=== PATIENT | female | born 1980 | race Caucasian/White ===

== ENCOUNTER 2017-02-15 03:20 | Emergency (ER) | payer BC ==
[~2017-02-15] VITALS: Ht 162.6 cm; Wt 77.3 kg
[~2017-02-15 03:20] MED LIST: CEFTIN500 MG PO; CELEXA 20MG20 MG/TAB PO; NAPROSYN500 MG PO; NUVARING1 ICR VG; PERCOCET 325 MG1 TA2 PO; TOPAMAX 100MG100 M1 PO; ZANTAC 150MG T150 MG PO; ZOFRAN ODT4 MG PO
[2017-02-15 03:25] VITALS: TEMP 97.8
[2017-02-15] MEDS ORDERED: BRINTELLIX20 PO (03:29)
[2017-02-15 04:34] LABS: BASO % 0.4 % (0.0-2.0); EOS # 0.2 (0.0-0.7); EOS % 2.2 % (0-4.0); GRAN # 5.5 (1.4-6.5); GRAN % 57.5 % (42.2-75.2); LYMPH % 31.2 % (20.0-51.0); MEAN CELL VOLUME 89 fl (80.0-100.0); MEAN CORPUSCULAR HGB CONC 33 g/dl (33.0-37.0); MEAN PLATELET VOLUME 9.1 fl (7.4-10.4); MONO # 0.8 (0.1-0.6); MONO % 7.9 % (1.7-9.3); PLATELET COUNT 262 K/mm3 (130-400); RED BLOOD COUNT 3.77 M/mm3 (4.10-5.30); REDCELL DISTRIBUTION WIDTH-CV 12.3 % (11.5-14.5)
[2017-02-15 04:35] LABS: HEMATOCRIT 33.6 % (37.0-47.0); HEMOGLOBIN 11.1 g/dl (12.5-16.0); MEAN CORPUSCULAR HEMOGLOBIN 29 pg (27.0-31.0)
[2017-02-15 04:52] LABS: ERYTHROCYTE SEDIMENTATION RATE 16 mm/hr (0-20)
[2017-02-15] MEDS ORDERED: NEURONTIN100 MG/CAP PO (05:30)
[2017-02-15] MEDS ORDERED: PERCOCET 325 MG1 TA2 PO (05:30)
[2017-02-15 06:20] VITALS: BP 105/70; PULSE 65
== END 2017-02-15 05:42 | disposition home or self-care (01) ==
LOC: COL.ER 03:20
PROVIDERS: Emergency Medicine
DX: R68.84 Jaw pain (principal); G43.909 Migraine, unspecified, not intractable, without status migrainosus
CPT/HCPCS: J1885; J3010

== ENCOUNTER 2017-04-18 11:55 | Emergency (ER) | payer BC ==
[~2017-04-18] VITALS: Ht 162.6 cm; Wt 81.8 kg
[~2017-04-18 11:55] MED LIST changes: +BRINTELLIX20 PO; +NEURONTIN100 MG/CAP PO
[2017-04-18 11:56] VITALS: BP 146/89; PULSE 89; TEMP 98.5
[2017-04-18] MEDS ORDERED: TEGRETOL 2200 MG/TA1 PO (11:59)
[2017-04-18] MEDS ORDERED: DOXYCYCLINE 10100 MG PO (12:29)
== END 2017-04-18 12:39 | disposition home or self-care (01) ==
LOC: COL.ER 11:55
DX: L03.115 Cellulitis of right lower limb (principal); I10 Essential (primary) hypertension; F32.9 Major depressive disorder, single episode, unspecified; Z87.891 Personal history of nicotine dependence

== ENCOUNTER → 2017-09-24 | Outpatient (CLI) | payer BC ==
[~2017-09-24] MED LIST changes: +DOXYCYCLINE 10100 MG PO; +TEGRETOL 2200 MG/TA1 PO
== END ==
LOC: COL.RAD 09:45
DX: N92.1 Excessive and frequent menstruation with irregular cycle (principal)

== ENCOUNTER 2023-12-11 07:46 | Emergency (ER) | payer BC ==
[~2023-12-11] VITALS: Ht 162.6 cm; Wt 71.8 kg
[2023-12-11 07:48] VITALS: BP 110/72; PULSE 76; TEMP 97.8
[2023-12-11 08:22] LABS: COLLECTION METHOD CLEAN CATCH
[2023-12-11 08:31] LABS: PH 5.5 (5.0-8.5); URINE APPEARANCE TURBID (CLEAR/HAZY); URINE BLOOD 3+ (NEGATIVE); URINE COLOR YELLOW (YELLOW); URINE GLUCOSE NEGATIVE (NEGATIVE); URINE KETONE TRACE (NEGATIVE); URINE NITRATE NEGATIVE (NEGATIVE); URINE PROTEIN(semi-quant) TRACE (NEGATIVE); URINE UROBILINOGEN 0.2 E.U/dL (0.2-1.0)
[2023-12-11 08:50] LABS: SQUAMOUS EPITHELIAL 20-50 /hpf (0-10); URINE BACTERIA MODERATE /hpf (NONE SEEN); URINE RBC >50 /hpf (0-2)
== END 2023-12-11 08:43 | disposition left against medical advice (07) ==
LOC: COL.ER 07:46
PROVIDERS: Family Medicine
DX: R10.9 Unspecified abdominal pain (principal); R35.0 Frequency of micturition; Z53.29 Procedure and treatment not carried out because of patient's decision for other reasons